=== PATIENT | female | born 1945 | race African-American/Black ===

== ENCOUNTER 2017-01-27 13:44 | Emergency (ER) | payer OTHER ==
[~2017-01-27] VITALS: Ht 157.5 cm; Wt 73.5 kg
[2017-01-27] MEDS ORDERED: diphenhdrAMINE HCL 50 MG/1 ML VL IM ONE (15:00)
[2017-01-27] MEDS ORDERED: HALOPERIDOL LACTATE 5 MG/ML INJ VIAL IM ONE ×2 (15:00→15:30)
[2017-01-27] MEDS ORDERED: LORazepam 2MG/ML-1ML VIAL IM ONE (15:00)
[2017-01-27] MEDS ORDERED: HALOPERIDOL LACTATE 5 MG/ML INJ VIAL ONE (15:12)
[2017-01-27 17:00] LABS: Basophils # (auto) 0 uL; DEFINITIVE VIEW TRANSMISSION; Eosinophils # (auto) 0 uL; Eosinophils % (auto) 0.6 % (0.0-7.0); Hematocrit 36.4 % (36.0-46.0); Mean Platelet Volume 7.7 fL (7.4-10.4); Monocytes # (auto) 0.3 uL
[2017-01-27 17:05] LABS: Basophils % (auto) 0.2 % (0.0-2.0); Hemoglobin 11.7 g/dL (12.2-16.2); Lymphocytes # (auto) 1.5 uL; Lymphocytes % (auto) 24.9 % (10.0-50.0); Mean Corpuscular Hemoglobin 23.8 pg (28.0-32.0); Mean Corpuscular Hgb Conc. 32.1 g/dL (32.0-36.0); Mean Corpuscular Volume 74.1 fL (80.0-100.0); Monocytes % (auto) 5.4 % (0.0-12.0); Neutrophils # (auto) 4.3 uL; Neutrophils % (auto) 68.9 % (37.0-80.0); Platelet Count (auto) 219 10^3/uL (140-450); Red Cell Distribution Width 14.2 % (11.6-16.0); White Blood Cell 6.2 10^3/uL (4.4-10.8)
[2017-01-27 17:11] LABS: Anion Gap 11 (5-15); Blood Urea Nitrogen 15 mg/dL (7-18); Calcium 8.8 mg/dL (8.5-10.1); Carbon Dioxide 25 mmol/L (21-32); Chloride 110 mmol/L (98-107); Glucose 119 mg/dL (74-106); Potassium 3.4 mmol/L (3.5-5.1); Sodium 146 mmol/L (136-145)
[2017-01-27 17:13] LABS: GFR African American 98 mL/min; GFR Non-African American 81 mL/min
[2017-01-27] MEDS ORDERED: risperiDONE 1 MG TAB PO PRN (23:00)
[2017-01-27] MEDS ORDERED: risperiDONE 1 MG TAB PO SCH (23:00)
[2017-01-27 23:05] LABS: Urine Bilirubin Negative (Negative); Urine Color Yellow (Yellow); Urine Glucose Normal (Normal); Urine Ketone Negative (Negative); Urine Nitrite Negative (Negative); Urine RBC 4 /hpf (0 - 4); Urine Squamous Epithelial Cell FEW /hpf (<5); Urine Urobilinogen Normal (Negative)
[2017-01-27 23:06] LABS: Urine Blood 1+ /uL (Negative)
[2017-01-28] MEDS ORDERED: cefTRIAXone 1GM/50ML D5W 50 ML IV ONE
[2017-01-28] MEDS ORDERED: cefTRIAXone SOD 1,000 MG VL IM ONE (00:30)
[2017-01-28 02:14] VITALS: BP 138/62
== END 2017-01-28 02:33 | disposition short-term general hospital (02) ==
LOC: ER 13:44
DX: R41.82 Altered mental status, unspecified (principal); N39.0 Urinary tract infection, site not specified; I10 Essential (primary) hypertension
CPT/HCPCS: 36415; 70450; 80048; 80307; 80320; 81001; 85025; 93005; 96372; 99285; J0696; J1200; J1630; J2060; A4565